=== PATIENT | female | born 1955 | race Caucasian/White ===

== ENCOUNTER 2017-10-11 08:34 | Outpatient (CLI) | payer OTHER ==
--- NOTE | 2017-10-11 17:49 | RAD ---
LEFT HIP TWO VIEWS: Date: 10-11-17 FINDINGS: No fracture, dislocation, or arthritic change was seen. The joint space was normal in width and the a rticular surfaces are smooth. The adjacent pubic ring appears intact. IMPRESSION: No significant findings. POS: HOME
== END 2017-10-11 08:35 | disposition home or self-care (01) ==
LOC: BURRAD 08:34
PROVIDERS: ATTEND Nurse Practitioner
DX: M25.552 Pain in left hip (principal)